=== PATIENT | female | born 1995 | race Caucasian/White ===

== ENCOUNTER 2016-08-01 20:56 | Emergency (ER) | payer OTHER ==
[~2016-08-01] VITALS: Ht 167.6 cm; Wt 82.2 kg
[2016-08-01 20:58] VITALS: TEMP 37; Ht 167.6 cm; Wt 82.2 kg
[2016-08-01] MEDS ORDERED: SODIUM CHLORIDE 0.9% 1000ML 1,000 ML IV STA (21:08)
[2016-08-01] MEDS ORDERED: ONDANSETRON INJ 2 MG/ML 2 ML VIAL IV STA (21:08)
[2016-08-01] MEDS ORDERED: MoRPHine SULFATE 4 MG/ML 1 ML CARP\\VIAL IV STA (21:08)
--- NOTE | 2016-08-01 21:34 | EMERGENCY ROOM VISIT NOTE ---
History Report prepared by Johny: Concetta Frankel Under the Supervision of: Dr. Clarsia Montes M.D. First contact with patient: 21:04 Chief Complaint: HEADACHE Stated Complaint: HEADACHE,FEVER,NAUSEA,SEVERE NECK PAIN History of Present Illness The patient is a 20 year old female who presents to the Emergency Room with complaints of worsening neck pain with onset 2 days ago. She rates her discomfort as a 7/10. Two days ago, the patient had a headache and neck pain. She states that the neck pain would radiate up into her head, causing the headache. One day ago, the patient had a fever of 101. This morning, the patient did not have a fever. The patient is undergoing treatment for a chronic sinusitis. She was on prednisone for 2 weeks and antibiotics for three weeks. She notes that she has one day of antibiotics left. Source of History: patient Onset: 2 days ago Position: neck Symptom Intensity: 7/10 Quality: other (neck pain) Timing: worsening Associated Symptoms: + fevers, + headache Review of Systems See HPI for pertinent positives & negatives. A total of 10 systems reviewed and were otherwise negative. Past Medical & Surgical Medical Problems: (1) Sinusitis Family History Patient reports no known family medical history. Social History Smoking Status: Never Smoker Drug Use: none Housing Status: lives with roommate Occupation Status: [employer] 2[employer]0 student Current/Historical Medications Scheduled Control Pills ( Control Pills), 1 TAB PO DAILY Doxylamine-Dm (Nite Time Cough), 10 ML PO HS Lactobacillus (Probiotic), 3 CAP PO DAILY Sulfamethoxazole-Trimethoprim (Bactrim Ds 800MG/160MG), 1 TAB PO BID Scheduled PRN Cyclobenzaprine Hcl (Flexeril), 5-10 MG PO TID PRN for Muscle Spasms Ibuprofen Tab (Advil), 200-600 MG PO Q4H PRN for Pain Allergies Coded Allergies: No Known Allergies (Unverified , 08/01/16) Physical Exam Vital Signs Date Time Temp Pulse Resp B/P Pulse Ox O2 Delivery O2 Flow Rate FiO2 08/01/16 23:28 78 18 124/77 99 Room Air 08/01/16 22:10 80 08/01/16 20:58 37.0 95 16 144/83 97 Room Air Physical Exam Vital signs reviewed. General: Well-appearing female, in no significant distress. HEENT: No scleral icterus, PERRLA, tender to palpation over the cervical paraspinal muscles with limited range of motion due to the pain. Atraumatic. Cardiovascular: Regular rate and rhythm, no extra sounds. Pulmonary: Clear to auscultation bilaterally, normal work of breathing. Abdomen: Soft, nontender, nondistended, positive bowel sounds. Musculoskeletal: Atraumatic, no peripheral edema. Neurologic: Patient awake alert and oriented x 3, full strength in all 4 extremities. Cranial nerves 2 through 12 grossly intact. Skin: Warm, dry, no rash Medical Decision & Procedures ER Provider Diagnostic Interpretation: CT results as stated below per my review and radiologist interpretation: SINUS CT CT DOSE: HISTORY: Pain. Fever. sinusitis x for 2 weeks, fever, MCLEAN TECHNIQUE: Multiaxial CT images of the paranasal sinuses were performed and reformatted in the coronal plane without the use of contrast. COMPARISON: None. FINDINGS: The frontal sinuses, ethmoid air cells, sphenoid sinuses, and bilateral maxillary antra are clear. The mastoid air cells are clear. The bilateral ostiomeatal units are patent. The nasal septum is midline. The orbits are unremarkable. IMPRESSION: The paranasal sinuses and mastoid air cells are clear. Electronically signed by: Silvino Piper M.D. 08/01/2016 10:40 PM Dictated Date/Time: 08/01/2016 10:[address]AST CT DOSE: HISTORY: Fever Headache, fever- sinusitis TECHNIQUE: Multiaxial CT images of the head were performed without the use of intravenous contrast. Comparison: None. Findings: The paranasal sinuses and mastoid air cells are clear. The calvarium and skull base are intact. The ventricles and sulci are within normal limits. There is no mass, hematoma, midline shift, or acute infarct. Impression: No acute intracranial abnormality. Electronically signed by: Silvino Piper M.D. 08/01/2016 10:41 PM Dictated Date/Time: 08/01/2016 10:41 PM Laboratory Results 08/01/16 22:16 Red Blood Count 4.54, Mean Corpuscular Volume 87.0, Mean Corpuscular Hemoglobin 30.0, Mean Corpuscular Hemoglobin Concent 34.4, Mean Platelet Volume 10.2, Neutrophils (%) (Auto) 46.6, Lymphocytes (%) (Auto) 35.9, Monocytes (%) (Auto) 9.5, Eosinophils (%) (Auto) 5.8, Basophils (%) (Auto) 2.0, Neutrophils # (Auto) 2.59, Lymphocytes # (Auto) 1.99, Monocytes # (Auto) 0.53, Eosinophils # (Auto) 0.32, Basophils # (Auto) 0.11 08/01/16 22:16 Test 08/01/16 21:24 08/01/16 22:11 08/01/16 22:16 Influenza Type A (RT-PCR) Neg for Influ A (NEG) Influenza Type B (RT-PCR) Neg for Influ B (NEG) Urine Color DK YELLOW Urine Appearance CLOUDY (CLEAR) Urine pH 6.0 (4.5-7.5) Urine Specific [place] 1.034 (1.000-1.030) Urine Protein TRACE (NEG) Urine Glucose (UA) NEG (NEG) Urine Ketones TRACE (NEG) Urine Occult Blood NEG (NEG) Urine Nitrite NEG (NEG) Urine Bilirubin NEG (NEG) Urine Urobilinogen NEG (NEG) Urine Leukocyte Esterase NEG (NEG) Urine WBC (Auto) 1-5 /hpf (0-5) Urine RBC (Auto) 5-10 /hpf (0-4) Urine Hyaline Casts (Auto) 5-10 /lpf (0-5) Urine Epithelial Cells (Auto) >30 /lpf (0-5) Urine Bacteria (Auto) 1+ (NEG) Urine Mucus PRESENT (NONE PRSENT) White Blood Count 5.55 K/uL (4.8-10.8) Red Blood Count 4.54 M/uL (4.2-5.4) Hemoglobin 13.6 g/dL (12.0-16.0) Hematocrit 39.5 % (37-47) Mean Corpuscular Volume 87.0 fL (80-100) Mean Corpuscular Hemoglobin 30.0 pg (25-34) Mean Corpuscular Hemoglobin Concent 34.4 g/dl (32-36) Platelet Count 265 K/uL (130-400) Mean Platelet Volume 10.2 fL (7.4-10.4) Neutrophils (%) (Auto) 46.6 % Lymphocytes (%) (Auto) 35.9 % Monocytes (%) (Auto) 9.5 % Eosinophils (%) (Auto) 5.8 % Basophils (%) (Auto) 2.0 % Neutrophils # (Auto) 2.59 K/uL (1.4-6.5) Lymphocytes # (Auto) 1.99 K/uL (1.2-3.4) Monocytes # (Auto) 0.53 K/uL (0.11-0.59) Eosinophils # (Auto) 0.32 K/uL (0-0.5) Basophils # (Auto) 0.11 K/uL (0-0.2) RDW Standard Deviation 41.2 fL (36.4-46.3) RDW Coefficient of Variation 12.8 % (11.5-14.5) Immature Granulocyte % (Auto) 0.2 % Immature Granulocyte # (Auto) 0.01 K/uL (0.00-0.02) Anion Gap 9.0 mmol/L (3-11) Est Creatinine Clear Calc Drug Dose 88.9 ml/min Estimated GFR () 84.3 Estimated GFR (Non- 72.7 BUN/Creatinine Ratio 10.9 (10-20) Calcium Level 8.8 mg/dl (8.5-10.1) Total Bilirubin 0.3 mg/dl (0.2-1) Direct Bilirubin < 0.1 mg/dl (0-0.2) Aspartate Amino Transf (AST/SGOT) 23 U/L (15-37) Alanine Aminotransferase (ALT/SGPT) 29 U/L (12-78) Alkaline Phosphatase 56 U/L (45-117) Total Protein 7.9 gm/dl (6.4-8.2) Albumin 3.4 gm/dl (3.4-5.0) Lipase 159 U/L (73-393) Human Chorionic Gonadotropin, Qual NEG (NEG) Laboratory results per my review. Medications Administered Medications (Trade) Dose Ordered Sig/[place] Route Start Time Stop Time Status Last Admin Dose Admin Sodium Chloride (Nss 1000ml) 1,000 ml @ 999 mls/hr Q1H1M STAT IV 08/01/16 21:08 08/01/16 22:08 DC 08/01/16 22:01 999 MLS/HR Morphine Sulfate (MoRPHine SULFATE INJ) 4 mg NOW STAT IV 08/01/16 21:08 08/01/16 21:10 DC 08/01/16 22:09 4 MG Ondansetron HCl (Zofran Inj) 4 mg NOW STAT IV 08/01/16 21:08 08/01/16 21:10 DC 08/01/16 22:09 4 MG Cyclobenzaprine HCl (Flexeril Tab) 10 mg NOW STAT PO 08/01/16 23:06 08/01/16 23:07 DC 08/01/16 23:25 10 MG Ketorolac Tromethamine (Toradol Inj) 30 mg NOW STAT IV 08/01/16 23:23 08/01/16 23:24 DC 08/01/16 23:28 30 MG ED Course 2122: Past medical records reviewed. The patient was evaluated in room A3. A complete history and physical examination was performed. 2107: Zofran 4 mg IV, Morphine Sulfate 4 mg IV, Sodium Chloride 1000 ml @ 999 mls/hr IV 2306: Flexeril Tab 10 mg PO 2318: I reevaluated the patient; she is feeling better. She has some neck tenderness to touch. 2323: Toradol 30 mg IV 2332: Upon reevaluation, the patient appeared to have improvement of her symptoms. I discussed findings with the patient. She verbalized agreement of the treatment plan. The patient was discharged home. Medical Decision The patient is a 20 year old female who presents to the ED with complaints of neck pain fever. Differentials include: Etiologies such as viral syndrome, otitis, pharyngitis, pneumonia, influenza, meningitis, urinary tract infection, sepsis, bacteremia, as well as others were entertained. This patient was evaluated and appeared to be in no significant distress. Physical examination reveals tenderness over the cervical paraspinous muscles to palpation. There is no clear meningeal signs on exam. Patient has been symptomatic for the last several days. Her white blood cell count is normal. CT scan of the head and sinuses reveals no acute abnormality. She has been treated with Augmentin for the last several weeks for her sinusitis however today the sinuses are clear. I did discuss the possibility of lumbar puncture with the patient. Given that she is afebrile with a normal white count and has had several days of symptoms, I feel it is not likely to be high yield at this time. Patient seems comfortable with the plan for discharge. She was given a prescription for Flexeril. The patient weighs ibuprofen as needed for pain. She will follow-up with her physician for reevaluation this week and return to the ER for worsening of symptoms or any medical concerns. Impression Primary Impression: Headache Additional Impression: Cervical paraspinal muscle spasm Scribe Attestation The scribe's documentation has been prepared under my direction and personally reviewed by me in its entirety. I confirm that the note above accurately reflects all work, treatment, procedures, and medical decision making performed by me. Departure Information Dispostion Home / Self-Care Prescriptions Cyclobenzaprine Hcl (FLEXERIL) 10 Mg Tab 5-10 MG PO TID Y for Muscle Spasms, #21 TAB Prov: Clarisa Montes M.D. 08/01/16 Forms HOME CARE DOCUMENTATION FORM, IMPORTANT VISIT INFORMATION Patient Instructions My [facility] Additional Instructions Diagnosis: headache, cervical paraspinous muscle spasm Ibuprofen 600 mg every 6 hours as needed for pain with food. Flexeril 5-10 mg 3 times daily as needed for muscular spasm. Warm compresses and gentle stretching. Follow-up with your physician/[facility] services this week for reevaluation. Return to the ER for worsening of symptoms or any medical concerns. Problem Qualifiers Primary Impression: Headache Headache type: tension-type Headache chronicity pattern: acute headache Intractability: intractable Qualified Codes: G44.201 - Tension-type headache , unspecified, intractable
[2016-08-01 22:25] LABS: URINE APPEARANCE CLOUDY (CLEAR); URINE COLOR DK YELLOW; URINE EPITHELIAL CELL AUTO >30 /lpf (0-5); URINE NITRITE NEG (NEG); URINE SPECIFIC GRAVITY 1.034 (1.000-1.030); UROBILINOGEN NEG (NEG); ZZUR CULT IF INDIC CLEAN CATCH YES
[2016-08-01 22:34] LABS: BASO ABS # 0.11 K/uL (0-0.2); COMPLETE YES; EOS % 5.8 %; HEMATOCRIT 39.5 % (37-47); IG% 0.2 %; LYMPH % 35.9 %; LYMPH ABS # 1.99 K/uL (1.2-3.4); MEAN CORPUSCULAR HGB CONC 34.4 g/dl (32-36); MEAN PLATELET VOLUME 10.2 fL (7.4-10.4); MONO % 9.5 %; NEUT % 46.6 %; PLATELET COUNT 265 K/uL (130-400); RED BLOOD COUNT 4.54 M/uL (4.2-5.4); WHITE BLOOD COUNT 5.55 K/uL (4.8-10.8)
[2016-08-01] MEDS ORDERED: BCPILLS PO (22:40)
[2016-08-01] MEDS ORDERED: SULF800T23 PO (22:40)
[2016-08-01] MEDS ORDERED: IBUP-103 PO (22:42)
[2016-08-01] MEDS ORDERED: DOXY1LIQ PO (22:42)
--- NOTE | 2016-08-01 22:42 | DIAGNOSTIC IMAGING REPORT ---
SINUS CT CT DOSE: HISTORY: Pain. Fever. sinusitis x for 2 weeks, fever, MCLEAN TECHNIQUE: Multiaxial CT images of the paranasal sinuses were performed and reformatted in the coronal plane without the use of contrast. COMPARISON: None. FINDINGS: The frontal sinuses, ethmoid air cells, sphenoid sinuses, and bilateral maxillary antra are clear. The mastoid air cells are clear. The bilateral ostiomeatal units are patent. The nasal septum is midline. The orbits are unremarkable. IMPRESSION: The paranasal sinuses and mastoid air cells are clear. Electronically signed by: Silvino Piper M.D. 08/01/2016 10:40 PM Dictated Date/Time: 08/01/2016 10:40 PM
--- NOTE | 2016-08-01 22:43 | DIAGNOSTIC IMAGING REPORT ---
HEAD CT NONCONTRAST CT DOSE: HISTORY: Fever Headache, fever- sinusitis TECHNIQUE: Multiaxial CT images of the head were performed without the use of intravenous contrast. Comparison: None. Findings: The paranasal sinuses and mastoid air cells are clear. The calvarium and skull base are intact. The ventricles and sulci are within normal limits. There is no mass, hematoma, midline shift, or acute infarct. Impression: No acute intracranial abnormality. Electronically signed by: Silvino Piper M.D. 08/01/2016 10:41 PM Dictated Date/Time: 08/01/2016 10:41 PM
[2016-08-01] MEDS ORDERED: LACT1CAP6 PO (22:44)
[2016-08-01 22:51] LABS: MANUAL MICROSCOPIC REQUIRED? NO; REVIEW REQ? YES; URINE BILIRUBIN NEG (NEG)
[2016-08-01 22:52] LABS: URINE MUCUS PRESENT (NONE PRSENT)
[2016-08-01 22:52] LABS: ALT/SGPT 29 U/L (12-78); BLOOD UREA NITROGEN 12 mg/dl (7-18); BUN/CREATININE RATIO 10.9 (10-20); CALCIUM 8.8 mg/dl (8.5-10.1); CARBON DIOXIDE 25 mmol/L (21-32); CHLORIDE 103 mmol/L (98-107); GLUCOSE 105 mg/dl (70-99); SODIUM 137 mmol/L (136-145)
[2016-08-01 22:55] LABS: ALKALINE PHOSPHATASE 56 U/L (45-117); AST/SGOT 23 U/L (15-37)
[2016-08-01 23:00] LABS: PREG INTERNAL NEGATIVE QC NEG CLEAR BACKGROUND; PREG INTERNAL POSITIVE QC POS CONTROL LINE
[2016-08-01] MEDS ORDERED: CYCLOBENZAPRINE HCL 10 MG TAB PO STA (23:06)
[2016-08-01] MEDS ORDERED: KETOROLAC TROMETHAMINE 30 MG/ML VIAL IV STA (23:23)
[2016-08-01 23:28] VITALS: BP 124/77; PULSE 78; O2SAT 99
[2016-08-01] MEDS ORDERED: CYCL10TA6 PO (23:33)
[2016-08-02 00:20] LABS: INFLUENZA A PCR Neg for Influ A (NEG); INFLUENZA B PCR Neg for Influ B (NEG)
== END 2016-08-01 23:40 | disposition home or self-care (01) ==
LOC: C.EDB 20:57 → C.EDA 23:40
DX: G44.201 Tension-type headache, unspecified, intractable (principal); M62.830 Muscle spasm of back; Z87.09 Personal history of other diseases of the respiratory system